=== PATIENT | male | born 1995 | race Caucasian/White ===

== ENCOUNTER 2018-08-04 00:31 | Emergency (ER) | payer BC, OTHER ==
[~2018-08-04] VITALS: Ht 170.2 cm; Wt 61.2 kg
[2018-08-04 01:06] LABS: BASOPHILS % (AUTO) 0 % (0-10); EOSINOPHILS # (AUTO) 0.2 10^3/uL (0.0-0.3); EOSINOPHILS % (AUTO) 2 % (0-10); HEMATOCRIT 43 % (40-54); HEMOGLOBIN 15.2 G/DL (13.3-17.7); LYMPHOCYTES # (AUTO) 3.6 X 10^3 (1.0-4.0); LYMPHOCYTES % (AUTO) 40 % (12-44); MEAN CORPUSCULAR HEMOGLOBIN 30 PG (25-34); MEAN CORPUSCULAR HGB CONC 35 G/DL (32-36); MEAN CORPUSCULAR VOLUME 87 FL (80-99); MEAN PLATELET VOLUME 9.2 FL (7.4-10.4); MONOCYTES # (AUTO) 0.9 X 10^3 (0.0-1.0); MONOCYTES % (AUTO) 10 % (0-12); NEUTROPHILS # (AUTO) 4.4 X 10^3 (1.8-7.8); NEUTROPHILS % (AUTO) 49 % (42-75); PLATELET COUNT 317 10^3/uL (130-400)
--- NOTE | 2018-08-04 02:01 | ED Cardiac General ---
History of Present Illness General Chief Complaint: Chest Pain Stated Complaint: CP Nursing Triage Note: Pt arrived by private vehicle for chief complaint of chest pain. Pt was alert, oriented and ambulatory to room 8. Pt stated it started around 2-3 hours ago. Pt stated he was sitting down when the pain started. Pt stated that the pain in located at center of chest at sternum and his upper back. Source: patient, family Exam Limitations: no limitations (LALA MCNAIR STUDENT) History of Present Illness Date Seen by Provider: Aug 04, 2018 Time Seen by Provider: 01:34 Initial Comments 23 y/o M presented to the ED with his for new onset chest pain. He noted that the pain started when he was sitting in the recliner before they went to bed for the night. He described the pain as a sharp pain with movement and a dull pain at rest located in the left upper back and some in the left/center of his chest. He denies fever, chills, diaphoresis. He did have some limited breathing due to pain. His pain worsened with sitting up, lying flat, and taking deep breaths but is relieved with standing. He has never experienced this pain before. He denied increased physical activity or straining his back. He denied trauma to his chest or back. He is anxious about his heart because his dad had a heart attack at age 51. Timing/Duration: 4-6 hours Severity: mild, moderate Location: central, back Activities at Onset: none, rest Prior CP/Workup: no prior chest pain Modifying Factors: worse with breathing, worse with lying down, worse with movement; improves with other (standing makes it better) Associated Systoms: Chest Pain; No Cough, No Diaphoresis, No Fever/Chills, No Headaches, No Nausea/Vomiting, No Rash; Shortness of Air (limited by pain with deep breaths); No Weakness (LALA MCNAIR STUDENT) Timing/Duration: 4-6 hours Severity: moderate Location: back Activities at Onset: rest Prior CP/Workup: no prior chest pain Modifying Factors: worse with movement NTG SL DIRECTOR SOCIAL SERVICE: No ASA po DIRECTOR SOCIAL SERVICE: No Associated Systoms: No Nausea/Vomiting; Shortness of Air (limited by pain with deep breaths) (ALISE BAKER MD) Allergies and Home Medications Patient Home Medication List Home Medication List Reviewed: Yes (LALA MCNAIR) Home Medication List Reviewed: Yes (ALISE BAKER MD) Review of Systems Review of Systems Constitutional: No chills, No diaphoresis, No dizziness, No fever, No malaise, No weakness EENTM: No Blurred Vision, No Double Vision, No Nose Congestion, No Throat Pain Respiratory: Denies Cough, Denies Orthopnea; Shortness of Air (limited by pain with deep breaths); Denies Wheezing Cardiovascular: Chest Pain (central and left sided); Denies Edema, Denies Irregular Heart Rate, Denies Lightheadedness, Denies Palpitations Gastrointestinal: Denies Abdomen Distended, Denies Abdominal Pain, Denies Constipated, Denies Diarrhea, Denies Nausea, Denies Vomiting Genitourinary: Denies Frequency, Denies Flank Pain, Denies Pain Musculoskeletal: back pain (upper, left-sided back pain); No joint pain, No muscle weakness, No neck pain Skin: No lumps, No pruritus, No rash Psychiatric/Neurological: Denies Anxiety, Denies Depressed, Denies Headache, Denies Numbness, Denies Tingling, Denies Weakness (LALA MCNAIR ) Respiratory: See HPI Cardiovascular: See HPI; Denies Lightheadedness, Denies Palpitations Musculoskeletal: back pain (upper, left-sided back pain), muscle pain (ALISE BAKER MD) Past Bhtztil-Jjrmju-Ngzowl Hx Past Med/Social Hx: Reviewed Nursing Past Med/Soc Hx (ALISE BAKER MD) Patient Social History Alcohol Use: Denies Use Recreational Drug Use: No Smoking Status: Never a Smoker 2nd Hand Smoke Exposure: No Recent Foreign Travel: No Contact w/Someone Who Travel: No Recent Infectious Disease Expo: No Recent Hopitalizations: No Physical Abuse: No Sexual Abuse: No Mistreated: No Fear: No (LALA MCNAIR) Seasonal Allergies Seasonal Allergies: No (LALA MCNAIR) Past Medical History Surgeries: No Respiratory: No Cardiac: No Neurological: No Genitourinary: No Gastrointestinal: No Musculoskeletal: No Endocrine: No HEENT: No Cancer: No Psychosocial: No Integumentary: No Blood Disorders: No (LALA MCNAIR) Family Medical History Reviewed and Corrections made (LALA MCNAIR STUDENT) Reviewed Nursing Family Hx (ALISE BAKER MD) CVA (father) (LALA MCNAIR STUDENT) Physical Exam Vital Signs Vital Signs - First Documented (ALISE BAKER MD) Vital Signs Capillary Refill : Less Than 3 Seconds (LALA MCNAIR STUDENT) Height, Weight, BMI Height: 5'7.00" Weight: 135lbs. 0oz. 61.684760to; BMI Method:Stated General Appearance: No Apparent Distress, WD/WN, Anxious HEENT: PERRL/EOMI, TMs Normal, Normal ENT Inspection, Pharynx Normal, Moist Mucous Membranes Neck: Full Range of Motion, Normal Inspection, Non Tender, Supple Respiratory: Chest Non Tender, Lungs Clear, Normal Breath Sounds, No Accessory Muscle Use, No Respiratory Distress Cardiovascular: Regular Rate, Rhythm, No Edema, No Gallop, No JVD, No Murmur Gastrointestinal: Normal Bowel Sounds, No Organomegaly, No Pulsatile Mass, Non Tender, Soft Extremity: Normal Range of Motion, Non Tender, No Calf Tenderness, No Pedal Edema Neurologic/Psychiatric: Alert, Oriented x3, No Motor/Sensory Deficits, Normal Mood/Affect Skin: Normal Color, Warm/Dry (LALA MCNAIR STUDENT) General Appearance: No Apparent Distress, WD/WN, Anxious HEENT: PERRL/EOMI, Pharynx Normal Respiratory: Lungs Clear, Normal Breath Sounds Cardiovascular: Regular Rate, Rhythm, No Murmur Extremity: Other (tender along the area medial to the scapula on the left. Muscle spasm noted.) Neurologic/Psychiatric: Alert, Oriented x3 (ALISE BAKER MD) Progress/Results/Core Measures Results/Orders Lab Results Laboratory Tests Test 08/04/18 00:39 Range/Units White Blood Count 9.0 4.3-11.0 10^3/uL Red Blood Count 5.01 4.35-5.85 10^6/uL Hemoglobin 15.2 13.3-17.7 G/DL Hematocrit 43 40-54 % Mean Corpuscular Volume 87 80-99 FL Mean Corpuscular Hemoglobin 30 25-34 PG Mean Corpuscular Hemoglobin Concent 35 32-36 G/DL Red Cell Distribution Width 12.0 10.0-14.5 % Platelet Count 317 130-400 10^3/uL Mean Platelet Volume 9.2 7.4-10.4 FL Neutrophils (%) (Auto) 49 42-75 % Lymphocytes (%) (Auto) 40 12-44 % Monocytes (%) (Auto) 10 0-12 % Eosinophils (%) (Auto) 2 0-10 % Basophils (%) (Auto) 0 0-10 % Neutrophils # (Auto) 4.4 1.8-7.8 X 10^3 Lymphocytes # (Auto) 3.6 1.0-4.0 X 10^3 Monocytes # (Auto) 0.9 0.0-1.0 X 10^3 Eosinophils # (Auto) 0.2 0.0-0.3 10^3/uL Basophils # (Auto) 0.0 0.0-0.1 10^3/uL D-Dimer 0.41 0.00-0.49 UG/ML Troponin I < 0.028 <0.028 NG/ML (ALISE BAKER MD) My Orders Orders - ALISE BAKER MD Cbc With Automated Diff (08/04/18 00:58) Fibrin Degradation Products (08/04/18 00:58) Troponin I (08/04/18 00:58) Chest Pa/Lat (2 View) (08/04/18 00:59) (ALISE BAKER MD) Vital Signs/I&O 08/04/18 08/04/18 00:39 00:39 Temp 98.2 Pulse 86 Resp 12 B/P (MAP) 124/76 (92) Pulse Ox 100 O2 Delivery Room Air Room Air (ALISE BAKER MD) Blood Pressure Mean: 92 Progress Progress Note : Progress Note I have seen and evaluated the patient and agree with above except as indicated. Directed the plan of care. EKG, chest x-ray and labs ordered due to family history with father with early heart attack. Monitor patient. 0245: No acute findings. Patient does have findings suggestive of rhomboid muscle pain. This is discussed with the patient. Discharged home with return precautions. Patient verbalize understanding instructions and agreement with plan. (ALISE BAKER MD) Initial ECG Impression Date: Aug 04, 2018 Initial ECG Impression Time: 00:37 Initial ECG Rate: 77 Initial ECG Rhythm: Normal Sinus Initial ECG Intervals: Normal Initial ECG Impression: Normal Initial ECG Comparisson: No Previous ECG Available Comment Sinus rhythm with normal axis. No evidence of ST elevation [place]. No previous available for comparison. Interpreted by me. (ALISE BAKER MD) Diagnostic Imaging Diagonstic Imaging: Xray Plain Films/CT/US/NM/MRI: chest Comments No acute findings 2 view chest x-ray (ALISE BAKER MD) Departure Impression Primary Impression: Chest pain Qualified Codes: R07.9 - Chest pain, unspecified Additional Impression: Rhomboid muscle strain Qualified Codes: S29.012A - Strain of muscle and tendon of back wall of thorax , initial encounter Disposition: HOME, SELF-CARE Condition: Improved Departure-Patient Inst. Decision time for Depature: 02:52 (ALISE BAKER MD) Referrals: NO,LOCAL PHYSICIAN (PCP) Primary Care Physician Patient Instructions: Muscle Strain (DC), Chest Pain (DC) Add. Discharge Instructions: All discharge instructions reviewed with patient and/or family. Voiced understanding. You may use ibuprofen 600 mg every 8 hours as needed for pain. You may use Tylenol/acetaminophen 1000 mg every 8 hours as needed for pain. You may use [id number] preparation such as icy hot with lidocaine patch, Aspercreme of lidocaine patch for similar area of concern per package directions. Return for worse pain, weakness, breathing problems, sweating, vomiting or other concerns as needed. Follow-up your Dr. in a few days for recheck as needed. LALA MCNAIR STUDENT Aug 04, 2018 02:01 ALISE BAKER MD Aug 04, 2018 02:52
[2018-08-04 02:56] VITALS: BP 107/85
--- NOTE | 2018-08-04 08:20 | Diagnostic Imaging Report ---
Indication: Chest pain. Findings: The lungs appear clear without focal infiltrate or effusion. There is no pneumothorax. The heart size and mediastinal contours appear appropriate. Pulmonary vascularity appears normal. No acute or suspicious osseous abnormality amount is demonstrated. Impression: 1. No radiographic evidence of an acute cardiopulmonary process. Dictated by: Dictated on workstation # [id number]
== END 2018-08-04 02:56 | disposition home or self-care (01) ==
LOC: ER 00:35
DX: S29.012A Strain of muscle and tendon of back wall of thorax, initial encounter (principal); R07.89 Other chest pain; X58.XXXA Exposure to other specified factors, initial encounter
CPT/HCPCS: 36415; 71046; 84484; 85025; 85379